=== PATIENT | male | born 1990 | race Caucasian/White ===

== ENCOUNTER 2016-10-14 23:16 | Emergency (ER) | payer SELFPAY ==
--- NOTE | 2016-10-15 00:11 | DIAGNOSTIC IMAGING REPORT ---
PROCEDURE: XR HAND 1 OR 2 VIEWS - LEFT INDICATION: Trauma p.m. TECHNIQUE: AP and lateral views with COMPARISON: None. FINDINGS: Laceration on the lateral aspect of the second digit middle phalanx. No radiopaque foreign body. No fracture. Normal joint spaces IMPRESSION: 1. Laceration
--- NOTE | 2016-10-15 01:03 | ED CLINICAL REPORT ---
Clinical Report - Physicians/Mid Levels [facility] [address] [place] [address] 10/14/2016 23:17 Patient: IRENE DIAZ Time Seen: 23:38. Arrived- By private vehicle. Historian- patient and family. HISTORY OF PRESENT ILLNESS Chief Complaint: Injury to the left index finger. The injury happened just prior to arrival. Occurred at home. ( Pt was compacting garbag in a sack at home using his hand. He suffered a cut in the L index finger on a piece of glass.). Patient is experiencing mild pain. No other injury. ( Pt is hearing impaired. He reads lips, writes notes and has family to help with history.). REVIEW OF SYSTEMS The patient sustained a laceration. Foreign body is suspected. No swelling, tingling, numbness or weakness. PAST HISTORY PROBLEMS: Insomnia. ADHD - Attention Deficit Hyperactivity Disorder. Hearing Loss. The patient's dominant hand is the right. Tetanus immunization status is up-to-date. SOCIAL HISTORY Former smoker. ADDITIONAL NOTES The nursing notes have been reviewed. PHYSICAL EXAM Vital Signs: 10/15/2016 01:12 BP: 131/85. HR: 93. RR: 14. O2 saturation: 98%. Pain level now: 0/10. 10/14/2016 23:24 BP: 160/89. HR: 104. RR: 18. O2 saturation: 95%. Temp: 98.3 F. Love-Barrientos pain scale: 4/10. Appearance: Alert. No acute distress. Head: Head atraumatic. Respiratory: Chest nontender. Extremities: Left index finger: 1.0 cm laceration of the volar aspect and PIP joint- SEE LACERATION PROCEDURE NOTE #1. Neurovascular intact distally. (Very strong flexion against resistance.). No erythema, tenderness, swelling, abrasion or ecchymosis. No foreign body or deformity. No limitation in movement. Extremities otherwise negative. Neuro, Vascular and Tendons: Vascular status intact. Sensation intact. Motor intact. Tendon function intact. LABS, X-RAYS, AND EKG Lt UE Digits X-ray: (PROCEDURE: XR HAND 1 OR 2 VIEWS - LEFT INDICATION: Trauma p.m. TECHNIQUE: AP and lateral views with COMPARISON: None. FINDINGS: Laceration on the lateral aspect of the second digit middle phalanx. No radiopaque foreign body. No fracture. Normal joint spaces IMPRESSION: 1. Laceration Electronically Final signed by:Lincoln Snider MD 10/15/2016 12:10:17 AM). The X-rays were interpreted by the radiologist and contemporaneously by me. PROGRESS AND PROCEDURES Digital Nerve Block - Finger: Digital nerve block performed on the left index finger. Web space, dorsal and volar approach utilized. Skin prepped. Total volume of 2 mL 1% Lidocaine infiltrated via multiple punctures using a 27-gauge needle. No complications encountered. Mild anesthesia achieved. (Reinforced block with local infiltration.). Laceration Repair: Location: left index finger. Length: 1 cm. Complexity: simple (local anesthesia used and sutured). Wound depth/shape- subcutaneous and linear. Wound is clean. Neuro/vascular/tendon status. Tendon examined. (Lac is to the tendon sheath. The wound is examined in full flexion and extension. No tendon or tendon sheath injury or FB is seen.). No motor deficit or vascular deficit distally. Local anesthesia provided by digital block using 2% lidocaine no epi or bicarb. Prepped with Betadine. Wound explored, irrigated and examined to the base in bloodless field with normal saline. No foreign material removed. Used Rain for hemostasis. Closure of skin: interrupted 4-0 nylon. Post-procedure: he is stable. Bleeding is controlled. Tetanus immunization up-to-date. Splint Application: Aluminum-foam splint applied to finger. Course of Care: Because wound was clean/contaminated and deep 5 days of prophylactic antibiotics will be given. Disposition: Discharged. Condition: good. CLINICAL IMPRESSION Single deep laceration to the left index finger. INSTRUCTIONS (YOU HAVE A VERY DEEP LACERATION IT WAS RIGHT DOWN TO THE TENDON SHEATH AN UNTREATED FLEXOR TENDON LACERATION CAN RUIN YOUR HAND FUNCTION FOREVER. YOU NEED TO SEE A SURGEON TO DOUBLE CHECK MY JUDGMENT THAT YOU DID NOT LACERATE YOUR FLEXOR TENDON). Prescription Medications: Cephalexin 500 mg: take 1 capsule orally every 6 hours for 5 days. No refill. Understanding of the discharge instructions verbalized by patient and family. [facility] with: [facility], , [address] [place], [address] Follow up. Reason for referral: I MAY HAVE A FLEXOR TENDON IN MY FINGER. THE ER DR THINKS NO BUT WANTS A DOUBLE CHECK. (Electronically signed by Wm Marte MD 10/16/2016 21:38) Addenda for JOE IRENE C VisitID: [id number] Date: 10/14/2016 10/15/2016 1:30 0117 1 suture pack usd in wound repair. (Electronically signed by Nikhil Yancey R.N. - 10/15/2016 1:30)
--- NOTE | 2016-10-15 01:03 | ED ORDER SUMMARY ---
..... Patient: IRENE DIAZ OrderSheet [facility] VisitID: [id number] [place] [address] 26y, M Registration Date/Time: 10/14/2016 ORDER SHEET Weight: 79 kg Allergies: No Known Drug Allergy GENERAL ORDERS: Hand 2V Left (Glass in wound) Urgent (23:41 10/14/2016 Emy RIVERA) (Ack 23:42 [facility] Admin Asst) (23:53 MCampbell) Splint (Finger) (Left) (Index) (Aluminum Foam) (01:03 10/15/2016 Emy RIVERA) (1:16 Alcides) MEDICATION ORDERS: Keflex PO 500 mg (NOW) (01:01 10/15/2016 Emy RIVERA) (1:19 Bindu R.N.) IV FLUIDS: ORDER SHEET NOTES: [Electronically signed by Nikhil Yancey R.N. (01:22 10/15/2016)] [Electronically signed by Wm Marte MD (21:38 10/16/2016)] [Electronically locked/signed by Nikhil Yancey R.N. (:22 10/15/2016)]
--- NOTE | 2016-10-15 01:03 | ED NURSING NOTES ---
Clinical Report - Nurses [facility] [address] [place] [address] 10/14/2016 23:17 [id number] TRIAGE Triage time 23:26. Acuity: LEVEL 4. Chief Complaint: INJURY TO LEFT HAND. Alert. RYANN COMA SCORE: Ryann Coma Scale: 15- eyes open spontaneously (4); best verbal response- oriented x 4 (5); best motor response- obeys commands (6). --23:34 Julian Rincon R.N. 23:24 10/14/16. BP: 160/89. HR: 104. RR: 18 (regular and unlabored). O2 saturation: 95% on room air. Temp: 98.3 F (oral). Love-Barrientos pain scale: 4/10. --23:34 Julian Rincon R.N. Weight: 79 kg. Height/Length: 67 inches. BMI: 27.3. --23:23 Julian Rincon R.N. Medications [place] Oral. --23:28 Julian Rincon R.N. CloNIDine HCl Oral. --23:29 Julian Rincon R.N. Allergies No Known Drug Allergy. --23:28 Julian Rincon R.N. History Arrived by private vehicle. Historian: patient. Accompanied by family. This occurred just prior to arrival. He sustained a laceration from a sharp edge. ( pt writes that he cut his left index finger while pushing trash down into a trash can. Exact object causing laceration unknown.). Treatment LINEN ROOM HOUSEPERSON: None. PAST MEDICAL HX: Hypertension. SOCIAL HX: Former smoker. Occasional alcohol use. No drug use. ( denies SI/HI). FALL RISK ASSESSMENT: Fall risk assessment completed. No fall risk identified. NUTRITIONAL RISK ASSESSMENT: The nutritional risk assessment revealed no deficiencies. FUNCTIONAL ASSESSMENT: Functional assessment: no impairments noted. LEARNING NEEDS ASSESSMENT: The learning needs assessment revealed no barriers. SKIN INTEGRITY ASSESSMENT: Skin integrity risk assessment completed. No skin integrity risk identified. --23:34 Sergey, Julian, R.N. PAST MEDICAL HX: Tetanus status: up-to-date. Last tetanus: (Last Tetnus May 2013, states patient). --23:36 Julian Rincon R.N. PROBLEMS: Insomnia. ADHD - Attention Deficit Hyperactivity Disorder. --23:30 Julian Rincon R.N. Hearing Loss. --23:32 Julian Rincon R.N. The following entry was modified by Julian Rincon R.N., 23:32 <<STRICKEN ENTRY-- Hypertension. --23:29 Julian Rincon R.N. --END STRIKE>>. Interventions ID band on patient. To treatment room. --23:34 Julian Rincon R.N. PHYSICAL ASSESSMENT Ambulatory to room. GENERAL / NEURO / PSYCH: Oriented X 4. Alert. Appears in pain. EXTREMITIES: Neuro-vascular status intact to the extremity. Tip of left index finger. SKIN: Skin is warm and dry. Skin not intact. --23:35 Julian Rincon R.N. NURSING PROGRESS NOTES Bleeding controlled. Reassurance given. Two patient identifiers checked. Call light placed in reach. Side rails up. Bed placed in lowest position. Brakes of bed on. Patient ready for evaluation- chart flagged. Patient waiting for evaluation. --23:36 Julian Rincon R.N. Patient waiting for radiology results. --23:47 Julian Rincon R.N. ( Doctor Jesus at bedside performing suturing). --00:43 Julian Rincon R.N. ( 0115: Applied splint Left index finger with Aluminum foam). --01:18 Arely Alas 01:11 10/15/2016 Keflex (Cephalexin) PO 500 mg given. Allergies verified and confirmed 5 rights. --01:19 Nikhil Yancey R.N. 01:14. The patient is calm and resting quietly. GENERAL / NEURO / PSYCH: Alert. Oriented X 4. RESPIRATORY: No respiratory distress. SKIN: Skin is warm and dry. --01:21 Nikhil Yancey R.N. DISPOSITION / DISCHARGE Departure time: 01:18. Condition at departure: stable. No learning barriers present. Discharge instructions provided and reviewed with station engineer chief and the patient. Reviewed medication(s) side effects, precautions, dosing and course information. Prescription(s) given to the patient. Patient and station engineer chief verbalized understanding. Written instructions provided in Montserratian. The patient was discharged home and accompanied by station engineer chief. He left the Emergency Department ambulatory and via private vehicle. Physicist [employer]oust[employer] driving. FALL RISK ASSESSMENT: Fall risk assessment completed. No fall risk identified. --01:21 Nikhil Yancey R.N. 01:12 10/15/16. BP: 131/85. HR: 93. RR: 14. O2 saturation: 98% on room air. Pain level now: 0/10. --01:21 Nikhil Yancey R.N. Locked/Released at 10/15/2016 1:22 by Nikhil Yancey R.N.
--- NOTE | 2016-10-15 01:03 | ED CLINICAL REPORT ---
Clinical Report - Physicians/Mid Levels [facility] [address] [place] [address] 10/14/2016 23:17 Patient: IRENE DIAZ Time Seen: 23:38. Arrived- By private vehicle. Historian- patient and family. HISTORY OF PRESENT ILLNESS Chief Complaint: Injury to the left index finger. The injury happened just prior to arrival. Occurred at home. ( Pt was compacting garbag in a sack at home using his hand. He suffered a cut in the L index finger on a piece of glass.). Patient is experiencing mild pain. No other injury. ( Pt is hearing impaired. He reads lips, writes notes and has family to help with history.). REVIEW OF SYSTEMS The patient sustained a laceration. Foreign body is suspected. No swelling, tingling, numbness or weakness. PAST HISTORY PROBLEMS: Insomnia. ADHD - Attention Deficit Hyperactivity Disorder. Hearing Loss. The patient's dominant hand is the right. Tetanus immunization status is up-to-date. SOCIAL HISTORY Former smoker. ADDITIONAL NOTES The nursing notes have been reviewed. PHYSICAL EXAM Vital Signs: 10/15/2016 01:12 BP: 131/85. HR: 93. RR: 14. O2 saturation: 98%. Pain level now: 0/10. 10/14/2016 23:24 BP: 160/89. HR: 104. RR: 18. O2 saturation: 95%. Temp: 98.3 F. Love-Barrientos pain scale: 4/10. Appearance: Alert. No acute distress. Head: Head atraumatic. Respiratory: Chest nontender. Extremities: Left index finger: 1.0 cm laceration of the volar aspect and PIP joint- SEE LACERATION PROCEDURE NOTE #1. Neurovascular intact distally. (Very strong flexion against resistance.). No erythema, tenderness, swelling, abrasion or ecchymosis. No foreign body or deformity. No limitation in movement. Extremities otherwise negative. Neuro, Vascular and Tendons: Vascular status intact. Sensation intact. Motor intact. Tendon function intact. LABS, X-RAYS, AND EKG Lt UE Digits X-ray: (PROCEDURE: XR HAND 1 OR 2 VIEWS - LEFT INDICATION: Trauma p.m. TECHNIQUE: AP and lateral views with COMPARISON: None. FINDINGS: Laceration on the lateral aspect of the second digit middle phalanx. No radiopaque foreign body. No fracture. Normal joint spaces IMPRESSION: 1. Laceration Electronically Final signed by:Lincoln Snider MD 10/15/2016 12:10:17 AM). The X-rays were interpreted by the radiologist and contemporaneously by me. PROGRESS AND PROCEDURES Digital Nerve Block - Finger: Digital nerve block performed on the left index finger. Web space, dorsal and volar approach utilized. Skin prepped. Total volume of 2 mL 1% Lidocaine infiltrated via multiple punctures using a 27-gauge needle. No complications encountered. Mild anesthesia achieved. (Reinforced block with local infiltration.). Laceration Repair: Location: left index finger. Length: 1 cm. Complexity: simple (local anesthesia used and sutured). Wound depth/shape- subcutaneous and linear. Wound is clean. Neuro/vascular/tendon status. Tendon examined. (Lac is to the tendon sheath. The wound is examined in full flexion and extension. No tendon or tendon sheath injury or FB is seen.). No motor deficit or vascular deficit distally. Local anesthesia provided by digital block using 2% lidocaine no epi or bicarb. Prepped with Betadine. Wound explored, irrigated and examined to the base in bloodless field with normal saline. No foreign material removed. Used Rain for hemostasis. Closure of skin: interrupted 4-0 nylon. Post-procedure: he is stable. Bleeding is controlled. Tetanus immunization up-to-date. Splint Application: Aluminum-foam splint applied to finger. Course of Care: Because wound was clean/contaminated and deep 5 days of prophylactic antibiotics will be given. Disposition: Discharged. Condition: good. CLINICAL IMPRESSION Single deep laceration to the left index finger. INSTRUCTIONS (YOU HAVE A VERY DEEP LACERATION IT WAS RIGHT DOWN TO THE TENDON SHEATH AN UNTREATED FLEXOR TENDON LACERATION CAN RUIN YOUR HAND FUNCTION FOREVER. YOU NEED TO SEE A SURGEON TO DOUBLE CHECK MY JUDGMENT THAT YOU DID NOT LACERATE YOUR FLEXOR TENDON). Prescription Medications: Cephalexin 500 mg: take 1 capsule orally every 6 hours for 5 days. No refill. Understanding of the discharge instructions verbalized by patient and family. [facility] with: [facility], , [address] [place], [address] Follow up. Reason for referral: I MAY HAVE A FLEXOR TENDON IN MY FINGER. THE ER DR THINKS NO BUT WANTS A DOUBLE CHECK. (Electronically signed by Wm Marte MD 10/16/2016 21:38) Addenda for JOE IRENE C VisitID: [id number] Date: 10/14/2016 10/15/2016 1:30 0117 1 suture pack usd in wound repair. (Electronically signed by Nikhil Yancey R.N. - 10/15/2016 1:30)
--- NOTE | 2016-10-15 01:03 | ED ORDER SUMMARY ---
..... Patient: IRENE DIAZ OrderSheet [facility] VisitID: [id number] [place] [address] 26y, M Registration Date/Time: 10/14/2016 ORDER SHEET Weight: 79 kg Allergies: No Known Drug Allergy GENERAL ORDERS: Hand 2V Left (Glass in wound) Urgent (23:41 10/14/2016 Emy RIVERA) (Ack 23:42 [facility] Teacher) (23:53 MCampbell) Splint (Finger) (Left) (Index) (Aluminum Foam) (01:03 10/15/2016 Emy RIVERA) (1:16 Alcides) MEDICATION ORDERS: Keflex PO 500 mg (NOW) (01:01 10/15/2016 Emy RIVERA) (1:19 Bindu R.N.) IV FLUIDS: ORDER SHEET NOTES: [Electronically signed by Nikhil Yancey R.N. (01:22 10/15/2016)] [Electronically signed by Wm Marte MD (21:38 10/16/2016)] [Electronically locked/signed by Nikhil Yancey R.N. (:22 10/15/2016)]
--- NOTE | 2016-10-15 01:03 | ED NURSING NOTES ---
Clinical Report - Nurses [facility] [address] [place] [address] 10/14/2016 23:17 [id number] TRIAGE Triage time 23:26. Acuity: LEVEL 4. Chief Complaint: INJURY TO LEFT HAND. Alert. RYANN COMA SCORE: Ryann Coma Scale: 15- eyes open spontaneously (4); best verbal response- oriented x 4 (5); best motor response- obeys commands (6). --23:34 Julian Rincon R.N. 23:24 10/14/16. BP: 160/89. HR: 104. RR: 18 (regular and unlabored). O2 saturation: 95% on room air. Temp: 98.3 F (oral). Love-Barrientos pain scale: 4/10. --23:34 Julian Rincon R.N. Weight: 79 kg. Height/Length: 67 inches. BMI: 27.3. --23:23 Julian Rincon R.N. Medications [place] Oral. --23:28 Julian Rincon R.N. CloNIDine HCl Oral. --23:29 Julian Rincon R.N. Allergies No Known Drug Allergy. --23:28 Julian Rincon R.N. History Arrived by private vehicle. Historian: patient. Accompanied by family. This occurred just prior to arrival. He sustained a laceration from a sharp edge. ( pt writes that he cut his left index finger while pushing trash down into a trash can. Exact object causing laceration unknown.). Treatment ACCOUNTING METHODS ANALYST: None. PAST MEDICAL HX: Hypertension. SOCIAL HX: Former smoker. Occasional alcohol use. No drug use. ( denies SI/HI). FALL RISK ASSESSMENT: Fall risk assessment completed. No fall risk identified. NUTRITIONAL RISK ASSESSMENT: The nutritional risk assessment revealed no deficiencies. FUNCTIONAL ASSESSMENT: Functional assessment: no impairments noted. LEARNING NEEDS ASSESSMENT: The learning needs assessment revealed no barriers. SKIN INTEGRITY ASSESSMENT: Skin integrity risk assessment completed. No skin integrity risk identified. --23:34 Sergey, Julian, R.N. PAST MEDICAL HX: Tetanus status: up-to-date. Last tetanus: (Last Tetnus May 2013, states patient). --23:36 Julian Rincon R.N. PROBLEMS: Insomnia. ADHD - Attention Deficit Hyperactivity Disorder. --23:30 Julian Rincon R.N. Hearing Loss. --23:32 Julian Rincon R.N. The following entry was modified by Julian Rincon R.N., 23:32 <<STRICKEN ENTRY-- Hypertension. --23:29 Julian Rincon R.N. --END STRIKE>>. Interventions ID band on patient. To treatment room. --23:34 Julian Rincon R.N. PHYSICAL ASSESSMENT Ambulatory to room. GENERAL / NEURO / PSYCH: Oriented X 4. Alert. Appears in pain. EXTREMITIES: Neuro-vascular status intact to the extremity. Tip of left index finger. SKIN: Skin is warm and dry. Skin not intact. --23:35 Julian Rincon R.N. NURSING PROGRESS NOTES Bleeding controlled. Reassurance given. Two patient identifiers checked. Call light placed in reach. Side rails up. Bed placed in lowest position. Brakes of bed on. Patient ready for evaluation- chart flagged. Patient waiting for evaluation. --23:36 Julian Rincon R.N. Patient waiting for radiology results. --23:47 Julian Rincon R.N. ( Doctor Jesus at bedside performing suturing). --00:43 Julian Rincon R.N. ( 0115: Applied splint Left index finger with Aluminum foam). --01:18 Arely Alas 01:11 10/15/2016 Keflex (Cephalexin) PO 500 mg given. Allergies verified and confirmed 5 rights. --01:19 Nikhil Yancey R.N. 01:14. The patient is calm and resting quietly. GENERAL / NEURO / PSYCH: Alert. Oriented X 4. RESPIRATORY: No respiratory distress. SKIN: Skin is warm and dry. --01:21 Nikhil Yancey R.N. DISPOSITION / DISCHARGE Departure time: 01:18. Condition at departure: stable. No learning barriers present. Discharge instructions provided and reviewed with lockmaker and the patient. Reviewed medication(s) side effects, precautions, dosing and course information. Prescription(s) given to the patient. Patient and lockmaker verbalized understanding. Written instructions provided in Austrian. The patient was discharged home and accompanied by lockmaker. He left the Emergency Department ambulatory and via private vehicle. Branch Account Manager driving. FALL RISK ASSESSMENT: Fall risk assessment completed. No fall risk identified. --01:21 Nikhil Yancey R.N. 01:12 10/15/16. BP: 131/85. HR: 93. RR: 14. O2 saturation: 98% on room air. Pain level now: 0/10. --01:21 Nikhil Yancey R.N. Locked/Released at 10/15/2016 1:22 by Nikhil Yancey R.N.
--- NOTE | 2016-10-16 21:38 | ED MAR SUMMARY ---
..... Medication Administration Record [facility] [address] [place] [address] Patient: IRENE DIAZ Visit ID: [id number] 26y, M Weight: 79.0 kg Height/Length: 67 in BMI: 27.3 ALLERGIES: No Known Drug Allergy Given 01:11 10/15/2016 Nikhil Yancey RIselaNIsela Medication Administered: KEFLEX [PO] (CEPHALEXIN), Dose: 500 mg PO. Medication Ordered: Keflex PO 500 mg (NOW).
--- NOTE | 2016-10-16 21:38 | ED DISCHARGE INSTRUCTIONS ---
Patient: IRENE DIAZ General Instructions [facility] VisitID: [id number] [address] [place] [place], [place] [id number] 26y, M Registration Date/Time: 10/14/2016 Single deep laceration to the left index finger. INSTRUCTIONS (YOU HAVE A VERY DEEP LACERATION IT WAS RIGHT DOWN TO THE TENDON SHEATH AN UNTREATED FLEXOR TENDON LACERATION CAN RUIN YOUR HAND FUNCTION FOREVER. YOU NEED TO SEE A SURGEON TO DOUBLE CHECK MY JUDGMENT THAT YOU DID NOT LACERATE YOUR FLEXOR TENDON). Prescription Medications: Cephalexin 500 mg: take 1 capsule orally every 6 hours for 5 days. No refill. Understanding of the discharge instructions verbalized by patient and family. Follow-up with: [facility], , [address], [place], [id number] Follow up. Reason for referral: I MAY HAVE A FLEXOR TENDON IN MY FINGER. THE ER DR THINKS NO BUT WANTS A DOUBLE CHECK. ADDITIONAL INFORMATION Laceration (All Closures) Alaceration is a cut through the skin. This will usually require stitches (sutures) or nikhil if it is deep. Minor cuts may be treated with a surgical tape closure orskin glue. Home care The following guidelines will help you care for your laceration at home: Extremity, face, or trunk wounds Keep the wound clean and dry. If a bandage was applied and it becomes wet or dirty, replace it. Otherwise, leave it in place for the first 24 hours. If stitches or nikhil were used, clean the wound daily. After removing the bandage, wash the area with soap and water. Use a wet cotton swab to loosen and remove any blood or crust that forms. The doctor may prescribe an antibiotic cream or ointment to prevent infection. Do not stop taking this medication until you have finished the prescribed course or the doctor tells you to stop. The doctor may also prescribe medications for pain. Follow the doctors instructions for taking these medications. You may remove the bandage to shower as usual after the first 24 hours, but do not soak the area in water (no swimming) until the stitches or nikhil are removed. If surgical tape was used, keep the area clean and dry. If it becomes wet, blot it dry with a towel. If skin glue was used, do not scratch, rub, or pick at the adhesive film. Do not place tape directly over the film. Do not apply liquid, ointment, or creams to the wound while the film is in place. Do not clean the wound with peroxide and do not apply ointments. Avoid activities that cause heavy sweating until the film has fallen off. Protect the wound from prolonged exposure to sunlight or tanning lamps. You may shower as usual but do not soak the wound in water (no baths or swimming). The film will fall off by itself in 510 days. Scalp wounds During the first two days, you may carefully rinse your hair in the shower to remove blood, glass or dirt particles. After two days, you may shower and shampoo your hair normally. Do not soak your scalp in the tub or go swimming until the stitches or nikhil have been removed. Talk with your doctor before applying any antibiotic ointment to the wound. Mouth wounds Eat soft foods to reduce pain. If the cut is inside of your mouth, clean by rinsing after each meal and at bedtime with a mixture of equal parts water and hydrogen peroxide (do not swallow!). Or, you can use a cotton swab to directly apply hydrogen peroxide onto the cut. Mouth wounds can be painful when eating. You may use an rgdc-aft-[id number] local numbing solution for pain relief. If this is not available, you may use any numbing solution for teething babies. You may apply this directly to the sores with a cotton-tip swab or with your finger. Follow-up care Follow up with your health care provider. Most skin wounds heal within ten days. Mouth and facial wounds heal within five days. However, even with proper treatment, a wound infection may sometimes occur. Therefore, you should check the wound daily for signs of infection listed below. Stitches should be removed from the face within five days; stitches and nikhil should be removed from other parts of the body within 714 days. If dissolving stitches were used in the mouth, these will fall out or dissolve without the need for removal. If tape closures were used, remove them yourself if they have not fallen off after 7 days. Ifskin glue was used, the film will fall off by itself in 510 days. When to seek medical care Get prompt medical attention if any of these occur: Bleeding not controlled by direct pressure Signs of infection, including increasing pain in the wound, increasing wound redness or swelling, or pus coming from the wound Fever of 100.4F (38C) or higher, or as directed by your health care provider Stitches or nikhil come apart or fall out or surgical tape falls off before 7 days Wound edges re-open Cephalexin Monohydrate Oral tablet What is this medicine? CEPHALEXIN (sef a NIURKA in) is a cephalosporin antibiotic. It is used to treat certain kinds of bacterial infections It will not work for colds, flu, or other viral infections. How should I use this medicine? Take this medicine by mouth with a full glass of water. Follow the directions on the prescription label. This medicine can be taken with or without food. Take your medicine at regular intervals. Do not take your medicine more often than directed. Take all of your medicine as directed even if you think you are better. Do not skip doses or stop your medicine early. Talk to your bench machine operator regarding the use of this medicine in children. While this drug may be prescribed for selected conditions, precautions do apply. What side effects may I notice from receiving this medicine? Side effects that you should report to your doctor or health urgent care technician as soon as possible: allergic reactions like skin rash, itching or hives, swelling of the face, lips, or tongue breathing problems pain or trouble passing urine redness, blistering, peeling or loosening of the skin, including inside the mouth severe or watery diarrhea unusually weak or tired yellowing of the eyes, skin Side effects that usually do not require medical attention (report to your doctor or health urgent care technician if they continue or are bothersome): gas or heartburn genital or anal irritation headache joint or muscle pain nausea, vomiting What may interact with this medicine? probenecid some other antibiotics What if I miss a dose? If you miss a dose, take it as soon as you can. If it is almost time for your next dose, take only that dose. Do not take double or extra doses. There should be at least 4 to 6 hours between doses. Where should I keep my medicine? Keep out of the reach of children. Store at room temperature between 59 and 86 degrees F (15 and 30 degrees C). Throw away any unused medicine after the expiration date. What should I tell my health care provider before I take this medicine? They need to know if you have any of these conditions: kidney disease stomach or intestine problems, especially colitis an unusual or allergic reaction to cephalexin, other cephalosporins, penicillins, other antibiotics, medicines, foods, dyes or preservatives or trying to get breast-feeding What should I watch for while using this medicine? Tell your doctor or health urgent care technician if your symptoms do not begin to improve in a few days. Do not treat diarrhea with over the counter products. Contact your doctor if you have diarrhea that lasts more than 2 days or if it is severe and watery. If you have diabetes, you may get a false-positive result for sugar in your urine. Check with your doctor or health urgent care technician. You have been given the following additional information: Laceration, All Cephalexin Monohydrate Oral tablet (Electronically signed by Wm Marte MD 10/16/2016 21:38)
--- NOTE | 2016-10-16 21:38 | ED MAR SUMMARY ---
..... Medication Administration Record [facility] [address] [place] [address] Patient: IRENE DIAZ Visit ID: [id number] 26y, M Weight: 79.0 kg Height/Length: 67 in BMI: 27.3 ALLERGIES: No Known Drug Allergy Given 01:11 10/15/2016 Nikhil Yancey RIselaNIsela Medication Administered: KEFLEX [PO] (CEPHALEXIN), Dose: 500 mg PO. Medication Ordered: Keflex PO 500 mg (NOW).
--- NOTE | 2016-10-16 21:38 | ED MED RECONCILIATION SUMMARY ---
Patient: IRENE DIAZ Medication Reconciliation Report [facility] VisitID: [id number] [address] [place] [address] 26y, M Registration Date/Time: 10/14/2016 Weight: 79 kg Height/Length: 67 in. BMI: 27.3 ALLERGIES: No Known Drug Allergy The patient's Home Medications are listed below: THE FOLLOWING MEDICATIONS NEED TO BE RECONCILED: CloNIDine HCl Oral [place] Oral The source(s) of the original Home Medication information: Not obtained. The following Medications were given to the patient in the Emergency Department: Keflex [PO] PO 500 mg, administered: 10/15/2016 1:11:00 AM The following Medications were prescribed to the patient: Cephalexin 500 mg: take 1 capsule orally every 6 hours for 5 days. No refill. -- Wm Marte MD
--- NOTE | 2016-10-16 21:38 | ED DISCHARGE INSTRUCTIONS ---
Patient: IRENE DIAZ General Instructions [facility] VisitID: [id number] [address] [place], [place] [id number] 26y, M Registration Date/Time: 10/14/2016 Single deep laceration to the left index finger. INSTRUCTIONS (YOU HAVE A VERY DEEP LACERATION IT WAS RIGHT DOWN TO THE TENDON SHEATH AN UNTREATED FLEXOR TENDON LACERATION CAN RUIN YOUR HAND FUNCTION FOREVER. YOU NEED TO SEE A SURGEON TO DOUBLE CHECK MY JUDGMENT THAT YOU DID NOT LACERATE YOUR FLEXOR TENDON). Prescription Medications: Cephalexin 500 mg: take 1 capsule orally every 6 hours for 5 days. No refill. Understanding of the discharge instructions verbalized by patient and family. Follow-up with: [facility], , [address], [place], [id number] Follow up. Reason for referral: I MAY HAVE A FLEXOR TENDON IN MY FINGER. THE ER DR THINKS NO BUT WANTS A DOUBLE CHECK. ADDITIONAL INFORMATION Laceration (All Closures) Alaceration is a cut through the skin. This will usually require stitches (sutures) or nikhil if it is deep. Minor cuts may be treated with a surgical tape closure orskin glue. Home care The following guidelines will help you care for your laceration at home: Extremity, face, or trunk wounds Keep the wound clean and dry. If a bandage was applied and it becomes wet or dirty, replace it. Otherwise, leave it in place for the first 24 hours. If stitches or nikhil were used, clean the wound daily. After removing the bandage, wash the area with soap and water. Use a wet cotton swab to loosen and remove any blood or crust that forms. The doctor may prescribe an antibiotic cream or ointment to prevent infection. Do not stop taking this medication until you have finished the prescribed course or the doctor tells you to stop. The doctor may also prescribe medications for pain. Follow the doctors instructions for taking these medications. You may remove the bandage to shower as usual after the first 24 hours, but do not soak the area in water (no swimming) until the stitches or nikhil are removed. If surgical tape was used, keep the area clean and dry. If it becomes wet, blot it dry with a towel. If skin glue was used, do not scratch, rub, or pick at the adhesive film. Do not place tape directly over the film. Do not apply liquid, ointment, or creams to the wound while the film is in place. Do not clean the wound with peroxide and do not apply ointments. Avoid activities that cause heavy sweating until the film has fallen off. Protect the wound from prolonged exposure to sunlight or tanning lamps. You may shower as usual but do not soak the wound in water (no baths or swimming). The film will fall off by itself in 510 days. Scalp wounds During the first two days, you may carefully rinse your hair in the shower to remove blood, glass or dirt particles. After two days, you may shower and shampoo your hair normally. Do not soak your scalp in the tub or go swimming until the stitches or nikhil have been removed. Talk with your doctor before applying any antibiotic ointment to the wound. Mouth wounds Eat soft foods to reduce pain. If the cut is inside of your mouth, clean by rinsing after each meal and at bedtime with a mixture of equal parts water and hydrogen peroxide (do not swallow!). Or, you can use a cotton swab to directly apply hydrogen peroxide onto the cut. Mouth wounds can be painful when eating. You may use an xoqa-dwh-[id number] local numbing solution for pain relief. If this is not available, you may use any numbing solution for teething babies. You may apply this directly to the sores with a cotton-tip swab or with your finger. Follow-up care Follow up with your health care provider. Most skin wounds heal within ten days. Mouth and facial wounds heal within five days. However, even with proper treatment, a wound infection may sometimes occur. Therefore, you should check the wound daily for signs of infection listed below. Stitches should be removed from the face within five days; stitches and nikhil should be removed from other parts of the body within 714 days. If dissolving stitches were used in the mouth, these will fall out or dissolve without the need for removal. If tape closures were used, remove them yourself if they have not fallen off after 7 days. Ifskin glue was used, the film will fall off by itself in 510 days. When to seek medical care Get prompt medical attention if any of these occur: Bleeding not controlled by direct pressure Signs of infection, including increasing pain in the wound, increasing wound redness or swelling, or pus coming from the wound Fever of 100.4F (38C) or higher, or as directed by your health care provider Stitches or nikhil come apart or fall out or surgical tape falls off before 7 days Wound edges re-open Cephalexin Monohydrate Oral tablet What is this medicine? CEPHALEXIN (sef a NIURKA in) is a cephalosporin antibiotic. It is used to treat certain kinds of bacterial infections It will not work for colds, flu, or other viral infections. How should I use this medicine? Take this medicine by mouth with a full glass of water. Follow the directions on the prescription label. This medicine can be taken with or without food. Take your medicine at regular intervals. Do not take your medicine more often than directed. Take all of your medicine as directed even if you think you are better. Do not skip doses or stop your medicine early. Talk to your men's designer regarding the use of this medicine in children. While this drug may be prescribed for selected conditions, precautions do apply. What side effects may I notice from receiving this medicine? Side effects that you should report to your doctor or health director of career services as soon as possible: allergic reactions like skin rash, itching or hives, swelling of the face, lips, or tongue breathing problems pain or trouble passing urine redness, blistering, peeling or loosening of the skin, including inside the mouth severe or watery diarrhea unusually weak or tired yellowing of the eyes, skin Side effects that usually do not require medical attention (report to your doctor or health director of career services if they continue or are bothersome): gas or heartburn genital or anal irritation headache joint or muscle pain nausea, vomiting What may interact with this medicine? probenecid some other antibiotics What if I miss a dose? If you miss a dose, take it as soon as you can. If it is almost time for your next dose, take only that dose. Do not take double or extra doses. There should be at least 4 to 6 hours between doses. Where should I keep my medicine? Keep out of the reach of children. Store at room temperature between 59 and 86 degrees F (15 and 30 degrees C). Throw away any unused medicine after the expiration date. What should I tell my health care provider before I take this medicine? They need to know if you have any of these conditions: kidney disease stomach or intestine problems, especially colitis an unusual or allergic reaction to cephalexin, other cephalosporins, penicillins, other antibiotics, medicines, foods, dyes or preservatives or trying to get breast-feeding What should I watch for while using this medicine? Tell your doctor or health director of career services if your symptoms do not begin to improve in a few days. Do not treat diarrhea with over the counter products. Contact your doctor if you have diarrhea that lasts more than 2 days or if it is severe and watery. If you have diabetes, you may get a false-positive result for sugar in your urine. Check with your doctor or health director of career services. You have been given the following additional information: Laceration, All Cephalexin Monohydrate Oral tablet (Electronically signed by Wm Marte MD 10/16/2016 21:38)
--- NOTE | 2016-10-16 21:38 | ED MED RECONCILIATION SUMMARY ---
Patient: IRENE DIAZ Medication Reconciliation Report [facility] VisitID: [id number] [address] [place] [address] 26y, M Registration Date/Time: 10/14/2016 Weight: 79 kg Height/Length: 67 in. BMI: 27.3 ALLERGIES: No Known Drug Allergy The patient's Home Medications are listed below: THE FOLLOWING MEDICATIONS NEED TO BE RECONCILED: CloNIDine HCl Oral [place] Oral The source(s) of the original Home Medication information: Not obtained. The following Medications were given to the patient in the Emergency Department: Keflex [PO] PO 500 mg, administered: 10/15/2016 1:11:00 AM The following Medications were prescribed to the patient: Cephalexin 500 mg: take 1 capsule orally every 6 hours for 5 days. No refill. -- Wm Marte MD
== END 2016-10-15 01:18 | disposition home or self-care (01) ==
LOC: ED SRH 23:16
DX: S61.211A Laceration without foreign body of left index finger without damage to nail, initial encounter (principal); W25.XXXA Contact with sharp glass, initial encounter; Y92.009 Unspecified place in unspecified non-institutional (private) residence as the place of occurrence of the external cause; Y99.8 Other external cause status; Z87.891 Personal history of nicotine dependence